=== PATIENT | female | born 1960 | race Caucasian/White ===

== ENCOUNTER 2020-12-12 09:59 | Day surgery (SDC) | payer OTHER, SELFPAY ==
[2020-12-11 14:41] LABS: BASOPHILS % (AUTO) 0.4 % (0.0-2.0); EOSINOPHILS # (AUTO) 0.1 K/uL (0-0.4); EOSINOPHILS % (AUTO) 2.9 % (0.0-4.0); HEMATOCRIT 42.2 % (36-48); HEMOGLOBIN 14.3 g/dL (12.0-16.0); LYMPHOCYTES % (AUTO) 24.2 % (20.5-51.1); MEAN CORPUSCULAR HEMOGLOBIN 33 pg (27-31); MEAN CORPUSCULAR HGB CONC 34 g/dL (33-37); MEAN CORPUSCULAR VOLUME 97.6 fL (80-94); MONOCYTES # (AUTO) 0.5 K/uL (0.8-1.0); MONOCYTES % (AUTO) 12.6 % (1.7-9.3); NEUTROPHILS # (AUTO) 2.5 K/uL (1.8-7.7); NEUTROPHILS % (AUTO) 59.9 % (42.2-75.2); PLATELET COUNT (AUTO) 220 K/uL (140-450); RED BLOOD CELL COUNT(AUTO) 4.33 MIL/uL (4.20-5.40); RED CELL DISTRIBUTION WIDTH 13.5 % (11.6-13.7); WHITE BLOOD COUNT (AUTO) 4.2 K/uL (4.8-10.8)
[2020-12-11 14:58] LABS: ALBUMIN 3.8 g/dL (3.4-5.0); ANION GAP 12.4 (8-16); CARBON DIOXIDE 28.8 mmol/L (21-32); CREATININE 0.8 mg/dL (0.6-1.3); POTASSIUM 4.2 mmol/L (3.5-5.1); TOTAL BILIRUBIN 0.3 mg/dL (0.0-1.0)
[~2020-12-12] VITALS: Ht 160 cm; Wt 77.1 kg
[2020-12-12] MEDS ORDERED: BUPIVACAINE-MPF/EPI 0.25% 30 ML VIAL INJ ONE (11:32)
[2020-12-12] MEDS ORDERED: methylPREDNISolone SS 40 MG/ML VIAL ONE (11:40)
[2020-12-12] MEDS ORDERED: fentaNYL citrate 0.05 MG/ML VIAL ONE (11:41)
[2020-12-12] MEDS ORDERED: MEPERIDINE 25 MG/ML SYR ONE (12:15)
[2020-12-12] MEDS ORDERED: SEVOFLURANE 250 ML BTL INH ONE (12:43)
[2020-12-12] MEDS ORDERED: LACTATED RINGERS 1,000 ML IV SCH (12:45)
[2020-12-12] MEDS ORDERED: MEPERIDINE 25 MG/ML SYR IVP PRN (12:45)
[2020-12-12] MEDS ORDERED: oxyCODONE/APAP 5/325 MG 1 TAB TAB PO PRN (12:45)
[2020-12-12] MEDS ORDERED: fentaNYL citrate 0.05 MG/ML VIAL IVP PRN (12:45)
[2020-12-12] MEDS ORDERED: ONDANSETRON 4 MG/2 ML VIAL IVP PRN (12:45)
[2020-12-12] MEDS ORDERED: hydrALAZINE 20 MG/ML VIAL ONE (12:52)
[2020-12-12] MEDS ORDERED: ETOMIDATE 20 MG/10 ML VIAL IVP ONE (12:52)
[2020-12-12] MEDS ORDERED: LIDOCAINE MPF 2% 100 MG/5 ML VIAL INJ ONE (12:54)
[2020-12-12] MEDS ORDERED: SUCCINYLCHOLINE CHLORIDE 200 MG/10 ML VIAL IVP ONE (12:55)
[2020-12-12] MEDS ORDERED: NEOSTIGMINE 1:1000 10 MG/10 ML VIAL ONE (12:55)
[2020-12-12] MEDS ORDERED: GLYCOPYRROLATE 0.2 MG/ML VIAL ONE ×2 (12:55)
[2020-12-12] MEDS ORDERED: ROCURONIUM 50 MG/5 ML VIAL IV ONE (12:55)
[2020-12-12] MEDS ORDERED: METOCLOPRAMIDE 10 MG/2 ML INJ VIAL ONE (12:57)
[2020-12-12] MEDS ORDERED: ONDANSETRON 4 MG/2 ML VIAL ONE (13:12)
[2020-12-12] MEDS ORDERED: HYDROcodone/APAP 5/325 MG 1 TAB TAB PO PRN (13:35)
[2020-12-12] MEDS ORDERED: HYDROmorphone 1 MG/ML AMP IVP PRN (13:35)
[2020-12-12] MEDS ORDERED: MORPHINE SULFATE 2 MG/ML SYR IVP PRN (13:35)
[2020-12-12] MEDS ORDERED: ONDANSETRON 4 MG/2 ML VIAL IV PRN (13:35)
[2020-12-12] MEDS ORDERED: MORPHINE SULFATE 4 MG/ML SYR IV PRN (13:35)
== END 2020-12-12 15:55 | disposition home or self-care (01) ==
LOC: MDS 09:59 → MFCC 10:01 → MMU 10:06 → MDS 15:55
PROVIDERS: ATTEND Surgery
DX: K80.12 Calculus of gallbladder with acute and chronic cholecystitis without obstruction (principal); E11.9 Type 2 diabetes mellitus without complications; E78.5 Hyperlipidemia, unspecified; F32.9 Major depressive disorder, single episode, unspecified; M19.90 Unspecified osteoarthritis, unspecified site; I10 Essential (primary) hypertension; F41.9 Anxiety disorder, unspecified; Z96.641 Presence of right artificial hip joint; Z20.822 Contact with and (suspected) exposure to COVID-19; Z79.899 Other long term (current) drug therapy
CPT/HCPCS: 36415; 47562; 71045; 80053; 82374; 85025; 86886; 86900; 86901; 87426; J0330; J0360; J0690; J2001; J2175; J2405; J2710; J2765; J2920; J3010; J3490; J7030; J7060; J7120